=== PATIENT | female | born 1995 | race American Indian/Alaskan Native ===

== ENCOUNTER 2018-09-22 18:30 | Outpatient (CLI) | payer OTHER ==
[2018-09-22 19:42] LABS: Bilirubin,Urine NEG (Negative); Blood,Urine SM (Negative); Color,Urine Yellow (Yellow); Mucus,Urine 1+ /HPF; Protein,Urine <15 mg/dL mg/dL (Negative)
[2018-09-22] MEDS ORDERED: LACTATED RINGERS 1,000 ML IV ONE (20:10)
--- NOTE | 2018-09-22 20:12 | Ultrasound Report ---
PROCEDURE: Ultrasound biophysical profile without nonstress test. TECHNIQUE: Sonographic evaluation for breathing, movement, tone, and amniotic flui d volume was performed. HISTORY: well being. COMPARISONS: None. FINDINGS: FETUS Amniotic fluid volume 2 . breathin . movement: 2 . tone: 2 . Score: 8 of 8 . IMPRESSION: Normal biophysical profile . This document is electronically signed by Steven Wren MD., September 22 2018 08:10:23 PM ET
--- NOTE | 2018-09-22 20:21 | Ultrasound Report ---
PROCEDURE: US OB FOLLOW UP TECHNIQUE: Real-time limited sonographic examination was performed for evaluation of amniotic fluid volume, well-being for each fetus with image documentation (1 or more fetuses). HISTORY: SUZANNA, EDC COMPARISONS: None . FINDINGS: MATERNAL Uterus: Within normal limits . Internal Os: closed . FETUS IUP: Single living intrauterine . Position: Vertex . Placental position: Fundus, without previa . Amniotic fluid volume: The 4 quadrant amniotic fluid volume measurement is 8.9 cm Heart rate and rhythm: 149 BPM, Regular . anatomic survey: Not performed on this study . MEASUREMENTS BPD: 8.5 cm . HC: 31.8 cm . AC: 32.9 cm . FL: 7.1 cm . Mean Gestational Age (composite criteria): 35 weeks 6 days +/- 2 weeks . Ratio biometry: Normal . Estimated Weight: 2888 grams Interval growth: Appropriate . Estimated Due Date (earliest scan): 10/17/2018 . IMPRESSION: 1. Single living intrauterine gestation at approximately 35 weeks 6 days +/- 2 weeks . 2. EDC by US 10/17/2018 . 3. The 4 quadrant amniotic fluid volume measurement is 8.9 cm This document is electronically signed by Shantel Butterfield DO., September 22 2018 08:19:41 PM ET
[2018-09-22] MEDS ORDERED: FLAGYL PO NR (21:10)
[2018-09-22] MEDS ORDERED: BRETHINE SUB-Q SCH (22:00)
--- NOTE | 2018-09-23 07:21 | Progress Note ---
Assessment and Plan A: at 36 weeks, 3 days gestation. Vaginal discharge. No leaking of fluid; normal SUZANNA; BPP 8/8. Reactive NST. contractions resolved with IV hydration and SQ [place]. P: Deferred to MD for disposition and discharge orders. Subjective - Subjective Date of service: 09/22/18 Principal diagnosis: at 36 weeks, 3 days gestation; R/O SROM Interval history: Triage note for 09/22/2018 23 year old at 36 weeks, 3 days gestation presents to rule out leaking of fluid. Patient is a walk in patient; she states she receives care at a doctor's office in [facility]. Patient reports she has felt some discharge today which she describes as "some thick and some thin." She denies vaginal bleeding. Patient reports active movement. Patient states she has had some mild irregular contractions today also. Patient states she has had 2 previous deliveries; she denies pain on her scar. Patient reports: movement normal, contractions, other (vaginal discharge), no vaginal bleeding Objective - Exam Narrative Exam: SSE performed: no pooling, negative nitrazine, negative fern test. Thick vaginal discharge noted. No bleeding seen. Abdomen: Present: normal appearance, soft. Absent: distention, tenderness, guarding, rigidity FHR: category 1 Uterine Contraction Monitor Mode: External Cervical Dilatation: 1 Cervical Effacement Percentage: 10 station: -3 Uterine Contraction Pattern: Irregular Uterine Contraction Intensity: Mild Extremities: normal - Labs Labs: Laboratory Results - last 24 hr 09/22/18 19:00 Urine Color Yellow Urine Turbidity Clear Urine pH 6.0 Ur Specific [place] 1.013 Urine Protein <15 mg/dl Urine Glucose (UA) Neg Urine Ketones Neg Urine Blood Sm Urine Nitrite Neg Urine Bilirubin Neg Urine Urobilinogen 4.0 Ur Leukocyte Esterase Tr Urine WBC (Auto) 2.0 Urine RBC (Auto) 1.0 U Epithel Cells (Auto) 1.0 Urine Mucus 1+
== END 2018-09-22 22:23 | disposition home or self-care (01) ==
LOC: TRG 18:30
PROVIDERS: ATTEND Obstetrics & Gynecology
DX: O47.03 False labor before 37 completed weeks of gestation, third trimester (principal); Z3A.36 36 weeks gestation of pregnancy
CPT/HCPCS: 76816; 76819; 81001; J3105; J7120